=== PATIENT | male | born 1950 | race Caucasian/White ===

== ENCOUNTER 2023-12-06 08:55 | Day surgery (SDC) | payer MEDICARE, OTHER ==
[2023-12-02 17:01] LABS: Absolute Basophils 0.1 K/uL (0-0.5); Absolute Eosinophils 0.3 K/uL (0-0.5); Absolute Lymphocytes (CBC) 2.4 K/uL (0.7-4.9); Absolute Monocytes 0.8 K/uL (0.1-1.3); Absolute Neutrophil 4.3 K/uL (1.8-8.0); Basophils % 0.9 % (0-1.3); Eosinophils % 3.5 % (0-4.4); Hematocrit 48.4 % (39.6-49.0); Hemoglobin 16.3 g/dL (13.6-17.9); Lymphocytes % 30.6 % (15.3-44.8); MCH 31.1 pg (27.0-35.0); MCHC 33.7 g/dL (32.0-36.0); MCV 92.2 fL (80-100); MPV 8.4 fL (7.6-11.3); Monocytes % 9.7 % (3.3-12.3); Neutrophils % 55.3 % (41.7-73.7); Nucleated Red Blood Cells % 0.1 % (0-0); Platelets 207 thou/uL (152-406); RBC Red Blood Cell Count 5.24 M/uL (4.33-5.43); Red Cell Distribution Width 14.3 % (12.1-15.2)
[2023-12-02 17:13] LABS: Anion Gap 6.9 mEq/L (5.0-15.0); Potassium 3.9 mEq/L (3.5-5.1)
--- NOTE | 2023-12-05 16:56 | EKG ---
Test Date: 2023-12-02 Test Time: 16:40:56 [employer] Supervisor: SHERICE MEASUREMENT RESULTS: Intervals: Rate: 80 LA: 176 QRSD: 90 QT: 366 QTc: 422 [place]: P: 64 LA: 176 QRS: -55 T: 37 INTERPRETIVE STATEMENTS: Normal sinus rhythm Left anterior fascicular block Abnormal ECG Compared to ECG 04/06/2015 10:38:59 Left anterior fascicular block now present Left-axis deviation no longer present Electronically Signed On 12-05-23 16:45:32 CDT by Arnold Piña
[2023-12-06] MEDS ORDERED: Ringers Lactate 1,000 ML IV ONE (09:02)
[2023-12-06] MEDS ORDERED: MIDAZOLAM HCL 2 MG/2 ML INJ ONE (10:14)
[2023-12-06] MEDS ORDERED: LIDOCAINE 1% MPF 5 ML VIAL ONE (10:14)
[2023-12-06] MEDS ORDERED: ROCURONIUM 50 MG/5 ML VIAL IV ONE (10:14)
[2023-12-06] MEDS ORDERED: propofoL 200 MG/20 ML VIAL IV ONE (10:14)
[2023-12-06] MEDS ORDERED: ONDANSETRON 4 MG/2 ML VIAL ONE (10:14)
[2023-12-06] MEDS ORDERED: KETOROLAC 30 MG/ML INJ ONE (10:14)
[2023-12-06] MEDS ORDERED: FENTANYL CITR 100 MCG/2 ML ONE ×2 (10:14→15:01)
[2023-12-06] MEDS: CEFAZOLIN SODIUM 1 GM/VIAL ONE (14:05)
[2023-12-06] MEDS ORDERED: GLYCOPYRROLATE 0.2 MG/ML SYR ONE (14:07)
[2023-12-06] MEDS: LIDOCAINE HCL/EPINEPHRINE 20 ML MDV ONE (14:12)
[2023-12-06] MEDS ORDERED: Phenylephrine HCl 10 MG/ML 1 ML VIAL ONE (14:22)
[2023-12-06] MEDS: Ringers Lactate 1,000 ML IV ONE (15:25)
[2023-12-06] MEDS ORDERED: Mastisol Adhesive Liq ONE (15:47)
--- NOTE | 2023-12-06 16:19 | P.OP ---
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 A shoulder roll was placed but the patient's neck extension did not allow for adequate support and the shoulder roll was subsequently removed. The head was turned towards the left for exposure of the right face and right neck. The nerve monitor probes were placed around the lateral right forehead and right lower lip and chin. The grounding and stimulating leads were placed in the left shoulder. The planned incision site was cleaned with alcohol and injected with approximately 7 mL of 1% lidocaine with epinephrine. The face and neck was prepped with Betadine and draped in the sterile fashion. A modified parotidectomy incision was designed due to the inferior location of the mass. The incision was placed over the midportion of the mass extending to its inferior extent and tracing up in front of the ear lobe to the level of the meatus. 15 blade scalpel was used to incise along this incision and a Bovie electrocautery was used to elevate a subplatysmal flap. Posteriorly a skin flap was developed down to the level of the sternocleidomastoid. The postauricular n erve was identified and carefully peeled away from its attachment on the posterior aspect of the tumor with structural integrity. The inferior aspect of the tumor was then carefully dissected from the surrounding fatty tissues in order to mobilize the inferior portion. Coming from the inferior portion anteriorly, a small branch of the facial nerve was identified and the tumor was carefully dissected away from this branch. The branch was traced in a distal to proximal direction freeing up tumor inferior to this nerve branch. An additional nerve branch was identified in the vicinity and was traced in a similar fashion. The soft tissues between the branches were carefully dissected. Between the branches more deeply, there was a large retromandibular vein identified and this was carefully retracted and dissected from the deep surface of the tumor. The tumor was carefully released while tracing the branches of the facial nerve proximally until the tumor was completely extirpated. The surgical bed was thoroughly irrigated and inspected. There was no evidence of significant bleeding. The branches of the facial nerve stimulated consistent with the patient's initial stimulation levels around 600 to 800 mV, indicating good response to the stimulation with optimistic outlook for postoperative function. A KENDY drain was placed through the posterior skin flap and secured with a nylon suture. The incision was then closed in layered fashion using 4-0 Vicryl deep sutures followed by Monocryl subcuticular suture. A Mastisol and Steri-Strip dressing was applied over the incision. The nerve monitors were removed and the patient was returned to care of anesthesia for awakening extubation in the operating room. During initial emergence, the patient had moderate coughing consistent with his history of tobacco use and direct pressure was held over the incision in order to help decrease risk of bleeding and hematoma. He was subsequently transported to the recovery room in stable condition. Complications: None Drain(s): KENDY drain Fluids & blood products: See anesthesia record Transferred to: Recovery Room Condition: Good
[2023-12-06 18:04] VITALS: BP 168/85; O2SAT 98
[2023-12-06 18:37] VITALS: TEMP 96.9
== END 2023-12-06 18:00 | disposition home or self-care (01) ==
LOC: OR 08:55
PROVIDERS: ATTEND Otolaryngology
PROC: 0CB80ZZ Excision of Right Parotid Gland, Open Approach (ICD-10-PCS; principal; 2023-12-06 11:00)
DX: D11.0 Benign neoplasm of parotid gland (principal); Z72.0 Tobacco use
CPT/HCPCS: 93005; 85025; 80048; 36415; 88307; 42415; J2704; J2001; J2371; J2250; J3010 ×2; J2405; J7120 ×2; J0690